=== PATIENT | female | born 1955 | race Caucasian/White ===

== ENCOUNTER → 2019-11-02 09:50 | Outpatient (CLI) | payer BC, SELFPAY ==
--- NOTE | 2019-11-02 09:54 | MM_ITS ---
PROCEDURE: MM DIG SCREENING MAMM BI W/CAD DIGITAL BREAST TOMOSYNTHESIS INCLUDED Patient Age:64Y CLINICAL INDICATION: Routine screening mammogram. No new complaints but no female hormones. . Patient with questionable previous cyst aspiration or biopsy right breast-nonspecified. Family history: Negative COMPARISON: No exams were available for comparison Patient's previous study was well over 10 years ago at [facility] facility and have since been purged as per hospital protocol TECHNIQUE: Standard CC and MLO images were obtained. R2 CAD reviewed. Bilateral digital breast tomosynthesis included. Additional CC views both breast included the FINDINGS: Moderate density breast but no suspicious or dominant mass. But no suspicious calcifications mild asymmetry appears satisfactory. Tomosynthesis view show no additional areas of concern either. IMPRESSION: No areas of significant concern. Mild fibroglandular asymmetry with no focal abnormality evident No prior studies available for comparison . Bilateral follow-up 1 year recommended BI-RAD Category: 2 Benign Finding(s) FOLLOW-UP: 1YR 1 Year Follow-up the the the the the the the (A letter has been sent to the patient regarding results of the study.) Dictated by: Salvatore Pelletier MD 11/07/2019 12:38 Electronically signed by Salvatore Pelletier MD in [place] 11/07/2019 12:38
--- NOTE | 2019-11-02 09:54 | XR_ITS ---
PROCEDURE: XR DEXA AXIAL SKELETON CLINICAL HISTORY: POST-MENOPAUSAL COMPARISON: No exams were available for comparison FINDINGS: The right hip BMD is 1.021 with a t-score of 0.6. The left hip BMD is 0.954 with a t-score of 0.1. The lumbar spine BMD is 1.187 with a t-score of 1.3. IMPRESSION: Normal bone density with low fracture risk. Suggest follow-up exam in 2 years Dictated by: Mingo Cosby MD 11/02/2019 21:12 Electronically signed by Mingo Cosby MD in [place] 11/03/2019 14:14
== END ==
PROVIDERS: PCP Internal Medicine Adolescent Medicine; Visit Provider Internal Medicine Adolescent Medicine
DX: Z78.0 Asymptomatic menopausal state (principal); Z12.31 Encounter for screening mammogram for malignant neoplasm of breast
CPT/HCPCS: 77063; 77067; 77080

== ENCOUNTER → 2021-06-25 10:35 | Outpatient (CLI) | payer BC, SELFPAY ==
--- NOTE | 2021-06-25 10:39 | MM_ITS ---
PROCEDURE INFORMATION: Exam: MG Bilateral Screening 3D Mammography Exam date and time: 06/25/2021 10:39 AM Age: 66 years old Clinical indication: Screening mammogram TECHNIQUE: Imaging protocol: Bilateral Screening tomosynthesis and 2D mammography including computer-aided detection (CAD) when performed. COMPARISON: MG MM DIG SCREENING MAMM BI W/CAD 11/02/2019 10:11 AM FINDINGS: MAMMOGRAPHY: Breast composition: There are scattered areas of fibroglandular density. Mass: None. Architectural distortion: No new or suspicious architectural distortion. Calcifications: No new or suspicious calcifications are present Asymmetric density: No new or suspicious asymmetric density is present Skin thickening: None. Axillary adenopathy: None. Other findings: Stable postoperative findings on the right. IMPRESSION: No mammographic evidence of malignancy. Recommend annual screening mammography unless otherwise clinically indicated. ASSESSMENT: BI-RADS category 2: Benign
== END ==
PROVIDERS: PCP Internal Medicine Adolescent Medicine; Visit Provider Internal Medicine Adolescent Medicine
DX: Z12.31 Encounter for screening mammogram for malignant neoplasm of breast (principal)
CPT/HCPCS: 77063; 77067

== ENCOUNTER → 2021-11-05 09:33 | Outpatient (CLI) | payer BC, SELFPAY | PROVIDERS: PCP Internal Medicine Adolescent Medicine; Visit Provider Internal Medicine | DX: U07.1 COVID-19 (principal) | CPT/HCPCS: C9803; U0003; U0005 ==

== ENCOUNTER → 2022-07-17 12:59 | Outpatient (CLI) | payer BC, SELFPAY ==
--- NOTE | 2022-07-17 13:05 | MM_ITS ---
PROCEDURE INFORMATION: Exam: MG Bilateral Screening 3D Mammography Exam date and time: 07/17/2022 1:03 PM Age: 67 years old Clinical indication: Screening examination TECHNIQUE: Imaging protocol: Bilateral Screening tomosynthesis and 2D mammography including computer-aided detection (CAD) when performed. COMPARISON: 1. MG MM DIG SCREENING MAMM BI W/CAD 06/25/2021 10:48 AM 2. MG MM DIG SCREENING MAMM BI W/CAD 11/02/2019 10:11 AM FINDINGS: MAMMOGRAPHY: Breast composition: There are scattered areas of fibroglandular density. Mass: None. Architectural distortion: None. Calcifications: No suspicious calcifications. Asymmetric density: None. Skin thickening: None. Axillary adenopathy: None. IMPRESSION: No mammographic evidence of malignancy. Annual screening is recommended unless otherwise clinically indicated. ASSESSMENT: BI-RADS Category 1: Negative
== END ==
PROVIDERS: PCP Internal Medicine Adolescent Medicine; Visit Provider Internal Medicine Adolescent Medicine
DX: Z12.31 Encounter for screening mammogram for malignant neoplasm of breast (principal)
CPT/HCPCS: 77063; 77067

== ENCOUNTER 2022-08-05 09:28 | Inpatient (IN) | payer BC, MEDICARE, SELFPAY ==
[2022-08-05] VITALS (21 sets, daily range): BP systolic 96–179; BP diastolic 50–107; PULSE 45–85; RESP 15–25; TEMP 36.4–37.3; O2SAT 91–100; BMI 27.8; BMI 27.1
--- NOTE | 2022-08-05 | IR_ITS ---
APPROVED REPORT PROCEDURES Catheter placement in the right pulmonary artery Right pulmonary artery selective angiogram Mechanical thrombectomy to the right upper pulmonary artery segment Mechanical thrombectomy to the right lower pulmonary artery segment Catheter placement in the left pulmonary artery Left pulmonary artery selective angiogram Mechanical thrombectomy to the left lower pulmonary segment INDICATION Submassive pulmonary embolism Informed consent was obtained prior to the procedure. COMPLICATIONS None Estimated Blood Loss: Less than 10 ml TECHNIQUE 1% lidocaine used anesthetize the right groin the right femoral vein was accessed via the Salinger technique and a 12 Danish sheath was placed in the right femoral vein. A JR4 guide catheter was used to intubate the right ventricular outflow track and a wire was then used to pass into the pulmonary artery. A penumbra lightening guide catheter was then advanced along with a 12 Danish sheath being placed into the right pulmonary artery where selective angiography was performed. Therapeutic heparin was administered giving a therapeutic ACT. The penumbra lightening catheter was advanced to the right upper segment and then large amount of thrombus was aspirated. Repeat angiography demonstrated wide patency. The catheter was advanced into the lower right segment and this procedure was repeated. Repeat angiography demonstrated excellent patency. The procedure was then repeated on the left side of the lung where large amount of thrombus was removed from the left lung. After achieving excellent clinical results and aspiration of a large amount of thrombus the penumbra catheter became clogged and could no longer aspirate any thrombus. The catheter was removed and flushed a large thrombus occluded the catheter. Angiography was then performed via the sheath which demonstrated significant debulking of the left lower segment. At this point the apparatus was removed the sheath was removed hemostasis was achieved using Z stitch patient was transferred to the postop holding area stable condition ANGIOGRAPHIC RESULTS Right upper segment has a massive thrombus causing severe occlusion Right lower segment has massive thrombus causing severe occlusion Right lower segment has a massive thrombus causing severe occlusion IMPRESSION Successful mechanical thrombectomy of the right upper and lower segments and subsegments Successful mechanical thrombectomy of the left lower segment and subsegment PLAN 1. Xarelto 15 mg p.o. twice daily for 3 weeks followed by Xarelto 20 mg daily thereafter 2. Supportive care Electronically signed by : Solitario Rodriguez MD 08/05/2022 18:10:27
--- NOTE | 2022-08-05 09:35 | CT_ITS ---
FINAL REPORT TECHNIQUE: Thin section axial CT images were obtained from the lung apices to the upper abdomen. IV contrast was administered. MIP 3-D reformats were obtained. This study was performed with techniques to keep radiation doses as low as reasonably achievable (ALARA). Individualized dose reduction techniques using automated exposure control or adjustment of mA and/or kV according to the patient's size were employed. CLINICAL HISTORY: Dimer elevated, SOA FINDINGS: The heart size is normal. There is no adenopathy. There are large bilateral pulmonary emboli. Clot burden is large. The RV LV ratio is 1.7 consistent with right heart strain. There is no aortic dissection. There is no pericardial effusion. There is no suspicious infiltrate or nodule. No pleural effusion. Limited images of the upper abdomen demonstrate multiple presumed gallstones. IMPRESSION: Large bilateral pulmonary emboli with evidence of right heart strain. Dr. Higgins was notified of these findings at 11:18 a.m. August 05, 2022. Reviewed, Interpreted and Dictated by Jose Zapata III, MD Transcribed by Randell Braxton Authenticated and [facility]
--- NOTE | 2022-08-05 09:35 | XR_ITS ---
FINAL REPORT CLINICAL HISTORY: soa FINDINGS: SINGLE-VIEW CHEST There is cardiomegaly. The mediastinum is normal. The lungs are clear. There is no pneumothorax. IMPRESSION: No acute cardiopulmonary process. Reviewed, Interpreted and Dictated by Jose Zapata III, MD Transcribed by Silvia Jeffers Authenticated and . [facility]
[2022-08-05 09:43] LABS: Basophils % 0.3 % (0.1-2.0); Eosinophils # 0.1 K/mm3 (0.0-0.4); Eosinophils % 0.9 % (0.1-12.0); Hematocrit 43.7 % (37.0-47.0); Hemoglobin 13.9 g/dL (12.2-16.2); Lymphocytes # 2.1 K/mm3 (0.7-4.5); Lymphocytes % 17.8 % (10-50); Mean Corpuscular HGB Conc 31.8 g/dL (31.8-35.4); Mean Corpuscular Volume 94.3 fl (81-99); Mean Platelet Volume 9.7 fl (7.4-10.4); Monocytes # 0.6 K/mm3 (0.1-1.0); Monocytes % 4.6 % (1.7-9.3); Neutrophils # 9.1 K/mm3 (1.8-7.8); Neutrophils % 76.5 % (37.0-80.0); Platelet Count 297 K/mm3 (142-424); Red Blood Count 4.63 M/mm3 (4.20-5.40); Red Cell Distribution Width 13.9 % (11.5-17.5); White Blood Count 11.9 K/mm3 (4.8-10.8)
--- NOTE | 2022-08-05 09:43 | ECG_ITS ---
APPROVED REPORT Exam: Resting ECG HR:71 bpm ECG Measurements Heart Rate 71 AXES MO 183 P 65 QRSd 111 QRS 27 QT 413 T -73 QTc 436 Conclusion SINUS RHYTHM INCOMPLETE RIGHT BUNDLE BRANCH BLOCK [90+ ms QRS DURATION, TERMINAL R IN V1/V2, 40+ ms S IN I/aVL/V4/V5/V6] ST DEVIATION AND MODERATE T-WAVE ABNORMALITY, CONSIDER ANTEROLATERAL ISCHEMIA [-0.1+ mV T-WAVE IN V3-V6] ST DEVIATION AND MODERATE T-WAVE ABNORMALITY, CONSIDER INFERIOR ISCHEMIA [-0.1+ mV T-WAVE IN II/aVF] ABNORMAL ECG UNCONFIRMED REPORT Electronically signed by : Santiago Pollard MD 08/05/2022 20:40:52
[2022-08-05 09:50] LABS: VBG Base Excess -7.8 mmol/L (-2.4-2.3); VBG HCO3 20.3 mmol/L (23-30); VBG Oxygen Saturation 95.4 % (50-70); VBG PO2 95.6 mmol/L (28-40); VBG Total CO2 21.9 mmol/L (23-27)
[2022-08-05 09:50] LABS: Chloride 101 mmol/L (98-107); Sodium 139 mmol/L (136-145)
[2022-08-05 09:51] LABS: Potassium 3.1 mmoL/L (3.5-5.1)
[2022-08-05 09:53] LABS: Alanine Aminotransferase 75 U/L (12-78); Alkaline Phosphatase 104 U/L (38-126); Aspartate Amino Transferase 68 U/L (14-36); Bilirubin,Total 0.9 mg/dl (0.2-1.3); Blood Urea Nitrogen 30 mg/dl (7-17); Creatinine Clearance Estimated 39 mL/min (50-200); Estimated Glomerular Filt Rate 25 ml/min (>60); GFR (African American) 30 ML/MIN (>60)
[2022-08-05 09:54] LABS: VBG PCO2 52.9 mmol/L (35-51)
[2022-08-05 09:54] LABS: Albumin Level 4.1 g/dl (3.5-5.0); Albumin/Globulin Ratio 1.3 (1.1-1.8); Anion Gap 18.1 mEq/L (5-15); Calcium 8.5 mg/dl (8.4-10.2); Carbon Dioxide 23 mmol/L (22.0-30.0); Globulin 3.1 g/dL (1.3-3.2); Glucose 271 mg/dl (74-100); Total Protein,Serum 7.2 g/dl (6.3-8.2)
[2022-08-05 10:03] LABS: NT Pro Brain Natriuretic Pep. 10700 pg/mL (0-125)
[2022-08-05 10:06] LABS: Troponin I 0.13 ng/ml (0.00-0.034)
--- NOTE | 2022-08-05 10:08 | HMH.EDGENADL ---
Discharge Plan Disposition Patient Disposition: Admitted As Inpatient Chief Complaint: Shortness of Breath/Dyspnea Clinical Impressions Clinical Impression: Pulmonary embolism Discharge ED Provider: Hima Higgins General Adult HPI General Chief complaint: Shortness of Breath/Dyspnea Stated complaint: Shortness of Breath Time Seen by Provider: 08/05/22 09:30 Mode of Arrival: EMS Source of Information: Patient and EMS Limitations: No Limitations Description of Symptoms (Recalled from ER Triage Doc. by RN): pt brought in via ems for shortness of air. symptoms ongoing since thursday. pt reports that she did recently take a trip to [place] and got home this past thursday. History of Present Illness HPI narrative: 67-year-old female with history of hypertension presents with shortness of air. She says that she is in normal state of health. However last week she drove 2600 miles to [facility] and returned. She has no history of blood clots or leg swelling. No current chest pain. She has difficulty breathing with walking. No fever no chills no cough. No abdominal pain nausea vomiting diarrhea. Related Data Home Medications Medication Instructions Recorded Confirmed amlodipine 10 mg-benazepril 20 mg 1 cap PO DAILY bp 07/13/17 08/05/22 capsule atorvastatin 80 mg tablet 80 mg PO HS High cholesterol 07/16/21 08/05/22 bisoprolol 10 1 tab PO DAILY bp 07/16/21 08/05/22 mg-hydrochlorothiazide 6.25 mg tablet Allergies Allergy/AdvReac Type Severity Reaction Status Date / Time No Known Allergies Allergy Verified 08/05/22 09:42 [facility] Disclaimer: The information contained in this section may have been updated after the patient was seen, as this information can be updated by other users. Medical History Hypertension Social History Smoking Status: Never smoker alcohol intake: never substance use type: denies use current occupational status: employed Travel in the last 8 weeks: None caffeine: Yes ROS Obtained: Yes All systems reviewed & no additional complaints except as documented Constitutional Constitutional: Denies fatigue and Denies fever(s) Eyes Eyes: Denies dry eyes ENT Ears, Nose, Mouth, and Throat: Denies hoarseness Cardiovascular Cardiovascular: Reports dyspnea Respiratory Respiratory: Reports dyspnea and Denies wheezing Gastrointestinal Gastrointestingal: Denies constipation Genitourinary Female Genitourinary: Denies hematuria Musculoskeletal Musculoskeletal: Denies joint stiffness Integumentary/Breasts Skin/Breast: Denies redness Neurologic Neurologic: Denies confusion Endocrine Endocrine: Denies fatigue Allergic/Immunologic Allergic/Immunologic: Denies wheezing Physical Exam General General appearance: alert and in no apparent distress Eye Eye exam: Present PERRL and EOMI ENT ENT exam: Present normal exam and normal oropharynx Neck Neck exam: Present normal inspection Chest Chest inspection: Present symmetric chest wall rise Respiratory Respiratory exam: Present normal lung sounds bilaterally; Absent respiratory distress Cardiovascular Cardiovascular exam: Present regular rate and normal rhythm Abdominal Exam Abdominal exam: Present soft; Absent distention, tenderness, guarding, rebound, Grider's sign or tenderness at McBurney's Point Back Exam Back exam: Present normal inspection Neurological Exam Neurological exam: Present alert and oriented X3 Psychiatric Psychiatric exam: Present normal affect and normal mood Skin Skin exam: Present warm, dry and intact Lymphatic Lymphatic Findings: no adenopathy Medical Decision Making Medical Records Medical records reviewed: Yes I reviewed the patient's medical records. Denys Inquiry Pt receiving controlled substance: No Denys was queried for this patient: No Vital Signs: 08/05/22 09:40 04
[2022-08-05 10:19] LABS: VBG PH 7.31 mmol/L (7.31-7.41)
[2022-08-05 10:20] LABS: VBG Base Excess -4.7 mmol/L (-2.4-2.3); VBG HCO3 21.6 mmol/L (23-30); VBG Oxygen Saturation 47.7 % (50-70); VBG PO2 29.1 mmol/L (28-40); VBG Total CO2 22.9 mmol/L (23-27)
[2022-08-05 10:42] LABS: Chloride 104 mmol/L (98-107); Potassium 3.9 mmoL/L (3.5-5.1)
[2022-08-05 10:44] LABS: Sodium 137 mmol/L (136-145)
[2022-08-05 10:45] LABS: Anion Gap 12.9 mEq/L (5-15); Blood Urea Nitrogen 33 mg/dl (7-17); Calcium 8.2 mg/dl (8.4-10.2); Carbon Dioxide 24 mmol/L (22.0-30.0); Creatinine Clearance Estimated 45 mL/min (50-200); Estimated Glomerular Filt Rate 30 ml/min (>60); GFR (African American) 36 ML/MIN (>60); Glucose 200 mg/dl (74-100)
--- NOTE | 2022-08-05 11:20 | PC.NURSE ---
rounded on pt at this time. family requesting to speak to md. gordon notified.
--- NOTE | 2022-08-05 11:36 | PC.NURSE ---
called radiology to [facility]
--- NOTE | 2022-08-05 11:50 | PC.NURSE ---
Called for consult and possible transfer of patient.
--- NOTE | 2022-08-05 11:50 | PC.NURSE ---
Dr Higgins talking to [facility] Dr Devine and Dr Segura about patient.
--- NOTE | 2022-08-05 11:53 | PC.NURSE ---
speaking to [facility]
--- NOTE | 2022-08-05 11:57 | PC.NURSE ---
[facility] reports they wouldnt intervene with pt unless pt condition worsened
--- NOTE | 2022-08-05 11:57 | PC.NURSE ---
speaking with hospitalist
[2022-08-05 12:01] LABS: PTT Heparin (inpatient only) 23.2 Seconds (23.6-34.0)
--- NOTE | 2022-08-05 12:51 | HMH.PHAINT1 ---
Pharmacy Intervention Comments: Reconciled patient's home medications using pharmacy fill history.
--- NOTE | 2022-08-05 12:52 | P.CONPHA_ITS ---
[facility] Pharmacy Heparin Dosing Demographic Data Admission date:: 08/05/22 Date: 08/05/22 Time: 12:52 Allergies Allergy/AdvReac Type Severity Reaction Status Date / Time No Known Allergies Allergy Verified 08/05/22 09:42 Height: 1.8 m Weight: 90.7 kg Indication Medication therapy:: Heparin Current Indications:: PE Current Active Problems (Updated 08/06/22 @ 11:21 by Margy Ashley APRN) Renal insufficiency (Acute) Elevated brain natriuretic peptide (BNP) level (Acute) Elevated troponin (Acute) Dyspnea (Acute) Pulmonary embolism (Acute) Hyperlipidemia (Acute) Hypertension (Chronic) CVA?: No Bleeding problem?: No Kidney disease?: No NM?: No Desired PTT range:: 50-75 seconds Labs Anticoagulation Lab Results:: 08/05/22 09:25 Hgb 13.9 Hct 43.7 Plt Count 297 Monitoring Dose Monitor 1: Date: 08/05/22 Time: 10:06 PTT Result:: 23.2 (BASELINE) Infusion Rate:: 1,600 UNITS/HR Comment:: 7,000 UNIT BOLUS Dose Monitor 2: Date: 08/05/22 Time: 13:00 PTT Result:: 152.3 Infusion Rate:: DECREASE RATE TO 1,450 UNITS/HR Dose Monitor 3: Date: 08/05/22 Time: 16:35 Comment:: CHANGED TO XARELTO Core Measures Is INR > or = 2 at discharge?: No Most Recent Labs:: Laboratory Results - last 24 hr 08/05/22 09:25: WBC 11.9 H, RBC 4.63, Hgb 13.9, Hct 43.7, MCV 94.3, MCH 30.0, MCHC 31.8, RDW 13.9, Plt Count 297, MPV 9.7, Neut % (Auto) 76.5, Lymph % (Auto) 17.8, Grant % (Auto) 4.6, Eos % (Auto) 0.9, Baso % (Auto) 0.3, Neut # (Auto) 9.1 H, Lymph # (Auto) 2.1, Grant # (Auto) 0.6, Eos # (Auto) 0.1, Baso # (Auto) 0.0 08/05/22 09:25: Sodium 139, Potassium 3.1 L, Chloride 101, Carbon Dioxide 23, Anion Gap 18.1 H, BUN 30 H, Creatinine 2.00 H, Estimated Creat Clear 39, Estimated GFR 25 L, Est GFR ( Amer) 30 L, Glucose 271 H, Calcium 8.5, Total Bilirubin 0.9, AST 68 H, ALT 75, Alkaline Phosphatase 104, Troponin I 0.13 H, NT-Pro-B Natriuret Pep 08027 H, Total Protein 7.2, Albumin 4.1, Globulin 3.1, Albumin/Globulin Ratio 1.3 08/05/22 09:48: VBG pH 7.20 L, VBG pCO2 52.9 H, VBG pO2 95.6 H, VBG HCO3 20.3 L, VBG Total CO2 21.9 L, VBG O2 Saturation 95.4 H, VBG Base Excess -7.8 L 08/05/22 10:00: VBG pH 7.31, VBG pCO2 44.0, VBG pO2 29.1, VBG HCO3 21.6 L, VBG Total CO2 22.9 L, VBG O2 Saturation 47.7 L, VBG Base Excess -4.7 L 08/05/22 10:06: Sodium 137, Potassium 3.9 D, Chloride 104, Carbon Dioxide 24, Anion Gap 12.9, BUN 33 H, Creatinine 1.70 H, Estimated Creat Clear 45, Estimated GFR 30 L, Est GFR ( Amer) 36 L, Glucose 200 H D, Calcium 8.2 L 08/05/22 10:06: APTT 23.2 L Were Heparin and Warfarin started on the same day?: No If not, why?: XARELTO STARTED
--- NOTE | 2022-08-05 13:03 | PC.NURSE ---
Called , Dr Higgins asked to remove patient from list, since being admitted here.
--- NOTE | 2022-08-05 13:06 | PC.NURSE ---
called report to trudy linder on med/surg
--- NOTE | 2022-08-05 13:50 | PC.NURSE ---
Dr. Rodriguez at bedside to discuss surgical intervention.
[2022-08-05 13:53] LABS: Troponin I 0.11 ng/ml (0.00-0.034)
--- NOTE | 2022-08-05 13:59 | EXP.CARD.CON ---
History of Present Illness History of Present Illness Consult date: 08/05/22 Requesting physician: Hima Higgins Consult reason: shortness of breath Chief complaint: SOA History of present illness: This is a 67-year-old white female who presented to the emergency department complaints of chest pain. She has past medical history of hypertension and hyperlipidemia. The patient states that she started being short of breath on Thursday. She states that they have worsened since that time and have gotten severe. The patient states that the shortness of breath is worse with exertion and does improve with rest but does not completely resolve. She denies any chest pain or pressure. She states that she has been having significant difficulty breathing while she is walking. She denies any lower extremity edema. She denies any fever, chills, nausea, vomiting, diarrhea, PND or orthopnea. The patient reports that she did take a trip to [place] where she drove the entire way and then just drove home this past Thursday. She states that during the drive home she did notice that she had a charley horse sensation in her left lower extremity which was most likely a DVT. She states that the charley horse sensation has resolved but her leg still kind of feels funny like something has been going on in her leg. CTA of the chest in the emergency department does show large bilateral pulmonary emboli with evidence of right heart strain. The patient was subsequently admitted to the hospital to undergo possible embolectomy. [facility] Disclaimer: The information contained in this section may have been updated after the patient was seen, as this information can be updated by other users. Medical History (Updated 08/05/22 @ 14:11 by Margy Ashley APRN) Dyspnea Elevated brain natriuretic peptide (BNP) level Elevated troponin Hyperlipidemia Hypertension Pulmonary embolism Renal insufficiency Social History Smoking Status: Never smoker alcohol intake: never substance use type: denies use current occupational status: employed Travel in the last 8 weeks: None caffeine: Yes Review of Systems Review of Systems Review of systems:: pertinent systems reviewed and negative unless documented below Constitutional Constitutional: Reports system reviewed and no additional complaints, except as documented Eyes Eyes: Reports system reviewed and no additional complaints, except as documented ENT Ears, Nose, Mouth, and Throat: Reports system reviewed and no additional complaints, except as documented *Cardiovascular Cardiovascular: Reports system reviewed and no additional complaints, except as documented, Denies chest pain, Reports dyspnea and Reports dyspnea on exertion *Respiratory Respiratory: Reports system reviewed and no additional complaints, except as documented, Reports dyspnea and Reports dyspnea on exertion *Gastrointestinal Gastrointestinal: Reports system reviewed and no additional complaints, except as documented *Genitourinary Genitourinary: Reports system reviewed and no additional complaints, except as documented *Musculoskeletal Musculoskeletal: Reports system reviewed and no additional complaints, except as documented and Reports other (leg cramping/charley horse sensation in LLE) Integumentary/Breasts Skin/Breast: Reports system reviewed and no additional complaints, except as documented *Neurologic Neurologic: Reports system reviewed and no additional complaints, except as documented and Denies confusion Psychiatric Psychiatric: Reports system reviewed and no additional complaints, except as documented and Denies confusion Endocrine Endocrine: Reports system reviewed and no additional complaints, except as documented Hematologic/Lymphatic Hematologic/Lymphatic: Reports system reviewed and no additional complaints, except as documented Allergic/Immunologic Allergic/Immunologic: Reports system reviewed an
[2022-08-05 14:02] LABS: PTT Heparin (inpatient only) 152.3 Seconds (23.6-34.0)
--- NOTE | 2022-08-05 14:08 | PC.NURSE ---
Patient being prepped for surgery. Patient to go to the labor relations analyst for cath and embolectomy, today. Earrings (smal hoops place in a specimen cup), Purse, glasses and phone given to the patients daughter. Clothing in cabinet. Patient to have repeat PTT drawn post procedure per Haris in Pharmacy.
--- NOTE | 2022-08-05 14:31 | PC.NURSE ---
patient gone to school laboratory technician. Heparin placed in standby.
[2022-08-05 15:20] LABS: Coronavirus 19, PCR Not Detected (NotDetected); Influenza A, PCR Not Detected (NotDetected); Influenza B, PCR Not Detected (NotDetected)
--- NOTE | 2022-08-05 18:00 | PC.NURSE ---
Per analytical laboratory technician instruction, Zstitch was removed with a suture removed kit at 1800, scant red drainage noted to the insertion site, manual pressure help for 15 minutes, dressing changed using a folded 4x4, secured with tegaderm, sand bag laid on top of right groin.
[2022-08-05 18:08] LABS: Troponin I 0.15 ng/ml (0.00-0.034)
[2022-08-05 19:01] LABS: PTT Heparin (inpatient only) > 200.0 Seconds (23.6-34.0)
--- NOTE | 2022-08-05 21:18 | EXP.HP ---
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 She finished her morning route and came to the hospital where she was found to be hypoxic and tachycardic. On history review she had recently completed a long car trip to [place] where she had been in a car for the better part of [address] scan of chest was done which revealed evidence of bilateral pulmonary emboli. Given her new oxygen requirement and some RV strain noted on EKG [facility] cardiology was consulted, Dr. Sparks was spoken to by the ER doctor and on his review of the case he did not think it warranted transfer for intervention. The patient was placed on heparin, but inadvertently initially admitted to hospitalist service who consulted cardiology. Cardiology service at [facility] felt the patient would warrant admission and interventional clot extraction procedure and she was taken for that procedure and then transferred up to the floor. [facility] Disclaimer: The information contained in this section may have been updated after the patient was seen, as this information can be updated by other users. Medical History (Updated 08/05/22 @ 14:11 by Margy Ashley APRN) Dyspnea Elevated brain natriuretic peptide (BNP) level Elevated troponin Hyperlipidemia Hypertension Pulmonary embolism Renal insufficiency Social History Smoking Status: Never smoker alcohol intake: never substance use type: denies use current occupational status: employed Travel in the last 8 weeks: None caffeine: Yes Review of Systems Review of Systems Review of systems:: pertinent systems reviewed and negative unless documented below *Neurologic Neurologic: Reports system reviewed and no additional complaints, except as documented and Denies confusion Psychiatric Psychiatric: Denies confusion Meds Home Medications and Allergies Home Medications Medication Instructions Recorded Confirmed Type amlodipine 10 mg-benazepril 20 mg 1 cap PO DAILY High blood pressure 07/13/17 08/05/22 History capsule atorvastatin 80 mg tablet 80 mg PO HS High cholesterol 07/16/21 08/05/22 History bisoprolol 10 1 tab PO DAILY High blood pressure 07/16/21 08/05/22 History mg-hydrochlorothiazide 6.25 mg tablet New Prescriptions to Start Prescriptions: Allergies Allergy/AdvReac Type Severity Reaction Status Date / Time No Known Allergies Allergy Verified 08/05/22 09:42 Exam Data for Last 24 hours Vital signs and Labs for Last 24 Hours: Temp Pulse Resp BP Pulse Ox 97.9 F 56 L 18 124/56 L 96 08/05/22 20:00 08/05/22 20:00 08/05/22 20:00 08/05/22 20:00 08/05/22 20:00 Laboratory Results - last 24 hr 08/05/22 09:25: WBC 11.9 H, RBC 4.63, Hgb 13.9, Hct 43.7, MCV 94.3, MCH 30.0, MCHC 31.8, RDW 13.9, Plt Count 297, MPV 9.7, Neut % (Auto) 76.5, Lymph % (Auto) 17.8, [place] % (Auto) 4.6, Eos % (Auto) 0.9, Baso % (Auto) 0.3, Neut # (Auto) 9.1 H, Lymph # (Auto) 2.1, Ross # (Auto) 0.6, Eos # (Auto) 0.1, Baso # (Auto) 0.0 08/05/22 09:25: Sodium 139, Potassium 3.1 L, Chloride 101, Carbon Dioxide 23, Anion Gap 18.1 H, BUN 30 H, Creatinine 2.00 H, Estimated Creat Clear 39, Estimated GFR 25 L, Est GFR ( Amer) 30 L, Glucose 271 H, Calcium 8.5, Total Bilirubin 0.9, AST 68 H, ALT 75, Alkaline Phosphatase 104, Troponin I 0.13 H, NT-Pro-B Natriuret Pep 11647 H, Total Protein 7.2, Albumin 4.1, Globulin 3.1, Albumin/Globulin Ratio 1.3 08/05/22 09:48: VBG pH 7.20 L, VBG pCO2 52.9 H, VBG pO2 95.6 H, VBG HCO3 20.3 L, VBG Total C
[2022-08-06] VITALS: BP 131/56; PULSE 55; PULSE 60; RESP 18; TEMP 36.9; O2SAT 97
--- NOTE | 2022-08-06 05:55 | PC.NURSE ---
Pt has had no complaints this shift. Pt ambulates to BR with standby assistance and tolerates well. O2 weaned to 1L, pt tolerating well. Pt denies CP or SOA. Dressing to right femoral cath site is CDI. No drainage, bleeding, or hematoma noted. Bilat pedal pulses equal and BLE warm and pink. NS infusing @100 ml/hr per JUN. Call light within reach.
[2022-08-06 06:00] VITALS: PULSE 50
--- NOTE | 2022-08-06 06:30 | CA_ITS ---
FINAL REPORT TECHNIQUE: Graded compression and a standard color Doppler and grayscale ultrasound images of the bilateral lower extremity deep venous system were obtained from the groin to the knee. CLINICAL HISTORY: Bilateral lower extremity edema, Left popliteal leg pain, PE COMPARISON: None FINDINGS: The right lower extremity deep venous system is normal. There is normal compressibility. There is no evidence of thrombus. In the left lower extremity there is positive deep venous thrombosis in the posterior tibial vein. IMPRESSION: Positive for DVT in the left posterior tibial vein. No evidence of DVT in the right lower extremity. Reviewed, Interpreted and Dictated by Jose Zapata III, MD Transcribed by Aleida Jj Authenticated and [facility]
[2022-08-06 06:41] LABS: Basophils % 0.3 % (0.1-2.0); Chloride 108 mmol/L (98-107); Eosinophils # 0.1 K/mm3 (0.0-0.4); Lymphocytes # 1.7 K/mm3 (0.7-4.5); Monocytes # 0.5 K/mm3 (0.1-1.0); Monocytes % 6.7 % (1.7-9.3); Sodium 140 mmol/L (136-145)
[2022-08-06 06:42] LABS: Potassium 3.6 mmoL/L (3.5-5.1)
[2022-08-06 06:44] LABS: Alanine Aminotransferase 46 U/L (12-78); Alkaline Phosphatase 77 U/L (38-126); Anion Gap 9.6 mEq/L (5-15); Aspartate Amino Transferase 30 U/L (14-36); Bilirubin,Indirect 0.7 mg/dL (0.0-0.9); Bilirubin,Total 0.7 mg/dl (0.2-1.3); Bilirubin,Unconjugated 0.8 mg/dL (0.0-1.1); Blood Urea Nitrogen 19 mg/dl (7-17); Calcium 7.7 mg/dl (8.4-10.2); Carbon Dioxide 26 mmol/L (22.0-30.0); Chol/HDL Ratio 5.9 (1-3.5); Cholesterol 124 mg/dl (140-200); Creatinine Clearance Estimated 75 mL/min (50-200); Estimated Glomerular Filt Rate 55 ml/min (>60); GFR (African American) 67 ML/MIN (>60); Glucose 111 mg/dl (74-100); HDL Cholesterol 21 mg/dl (40-60); Total Protein,Serum 5.4 g/dl (6.3-8.2); Triglycerides 119 mg/dl (30-150); VLDL Cholesterol 24 mg/dL (0-40)
[2022-08-06 06:56] LABS: Direct LDL Cholesterol 86.23 mg/dL (100-129)
[2022-08-06 06:58] LABS: Hematocrit 34.1 % (37.0-47.0); Lymphocytes % 22.5 % (10-50); Mean Corpuscular HGB Conc 32.6 g/dL (31.8-35.4); Mean Corpuscular Hemoglobin 30.1 pg (27.0-31.2); Mean Corpuscular Volume 92.1 fl (81-99); Mean Platelet Volume 9.4 fl (7.4-10.4); Neutrophils # 5.1 K/mm3 (1.8-7.8); Neutrophils % 69.4 % (37.0-80.0); Platelet Count 223 K/mm3 (142-424); Red Blood Count 3.71 M/mm3 (4.20-5.40); White Blood Count 7.3 K/mm3 (4.8-10.8)
[2022-08-06 07:08] LABS: Hemoglobin 11.1 g/dL (12.2-16.2)
[2022-08-06 07:31] VITALS: RESP 15; O2SAT 96
[2022-08-06 08:00] VITALS: BP 140/71; PULSE 57; PULSE 70; RESP 16; TEMP 36.8; O2SAT 98
--- NOTE | 2022-08-06 08:47 | EXP.DC.SUM ---
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 She finished her morning route and came to the hospital where she was found to be hypoxic and tachycardic. On history review she had recently completed a long car trip to [place] where she had been in a car for the better part of [address] scan of chest was done which revealed evidence of bilateral pulmonary emboli. Given her new oxygen requirement and some RV strain noted on EKG [facility] cardiology was consulted, Dr. Sparks was spoken to by the ER doctor and on his review of the case he did not think it warranted transfer for intervention. The patient was placed on heparin, but inadvertently initially admitted to hospitalist service who consulted cardiology. Cardiology service at [facility] felt the patient would warrant admission and interventional clot extraction procedure and she was taken for that procedure and then transferred up to the floor. Hospital Course Hospital Course Hospital Course: Patient was admitted, was subjected to pulmonary embolectomy as noted per cardiology notes. Patient tolerated procedure well. Did require oxygen through the night, this morning we removed it and decision about oxygen is pending at the time of discharge, patient may need to go home on 1 L, although her exam and feelings of dyspnea up to 15 minutes after O2 was removed were normal. Patient tolerated blood thinners well through the night. Patient was noted to have an LEAH on admission, fluids were given to the night and creatinine now is normal. Vital signs been stable. EKG is essentially unchanged. Plan to be to discharge patient home, I will prescribe Eliquis for anticoagulation, follow her up in the office in 5 days. Exam Data for Last 24 hours Vital signs and Labs for Last 24 Hours: Temp Pulse Resp BP Pulse Ox 98.2 F 57 L 16 140/71 98 08/06/22 08:00 08/06/22 08:00 08/06/22 08:00 08/06/22 08:00 08/06/22 08:00 Laboratory Results - last 24 hr 08/05/22 09:25: WBC 11.9 H, RBC 4.63, Hgb 13.9, Hct 43.7, MCV 94.3, MCH 30.0, MCHC 31.8, RDW 13.9, Plt Count 297, MPV 9.7, Neut % (Auto) 76.5, Lymph % (Auto) 17.8, [place] % (Auto) 4.6, Eos % (Auto) 0.9, Baso % (Auto) 0.3, Neut # (Auto) 9.1 H, Lymph # (Auto) 2.1, [place] # (Auto) 0.6, Eos # (Auto) 0.1, Baso # (Auto) 0.0 08/05/22 09:25: Sodium 139, Potassium 3.1 L, Chloride 101, Carbon Dioxide 23, Anion Gap 18.1 H, BUN 30 H, Creatinine 2.00 H, Estimated Creat Clear 39, Estimated GFR 25 L, Est GFR ( Amer) 30 L, Glucose 271 H, Calcium 8.5, Total Bilirubin 0.9, AST 68 H, ALT 75, Alkaline Phosphatase 104, Troponin I 0.13 H, NT-Pro-B Natriuret Pep 52733 H, Total Protein 7.2, Albumin 4.1, Globulin 3.1, Albumin/Globulin Ratio 1.3 08/05/22 09:48: VBG pH 7.20 L, VBG pCO2 52.9 H, VBG pO2 95.6 H, VBG HCO3 20.3 L, VBG Total CO2 21.9 L, VBG O2 Saturation 95.4 H, VBG Base Excess -7.8 L 08/05/22 10:00: VBG pH 7.31, VBG pCO2 44.0, VBG pO2 29.1, VBG HCO3 21.6 L, VBG Total CO2 22.9 L, VBG O2 Saturation 47.7 L, VBG Base Excess -4.7 L 08/05/22 10:06: Sodium 137, Potassium 3.9 D, Chloride 104, Carbon Dioxide 24, Anion Gap 12.9, BUN 33 H, Creatinine 1.70 H, Estimated Creat Clear 45, Estimated GFR 30 L, Est GFR ( Amer) 36 L, Glucose 200 H D, Calcium 8.2 L 08/05/22 10:06: APTT 23.2 L 08/05/22 11:27: SARS-CoV-2 (PCR) Not detected, Influenza A Untype (PCR) Not detected, Influenza Type B (PCR) Not detected 08/05/22 13:12: Troponin I 0.11 H 08/05/22 13:12: APTT 152.3 H* 08/05/22 17:31: Troponin I 0.15 H 08/05/22 18:05: APTT > 200.0 H* 08/06/22 06:08: WBC 7.3 D, RBC 3.71 L, Hgb 11.1 L D, Hct
--- NOTE | 2022-08-06 09:05 | ECG_ITS ---
APPROVED REPORT Exam: Resting ECG HR:55 bpm ECG Measurements Heart Rate [address] 161 P 64 QRSd 104 QRS -1 QT 463 T -74 QTc [address] DEVIATION AND MODERATE T-WAVE ABNORMALITY, CONSIDER ANTEROLATERAL ISCHEMIA [-0.1+ mV T-WAVE IN V3-V6] ST DEVIATION AND MODERATE T-WAVE ABNORMALITY, CONSIDER INFERIOR ISCHEMIA [-0.1+ mV T-WAVE IN II/aVF] ABNORMAL ECG UNCONFIRMED REPORT Electronically signed by : Santiago Pollard MD 08/08/2022 09:36:29
--- NOTE | 2022-08-06 09:25 | HMH.PHAINT1 ---
Pharmacy Intervention Comments: Counseled patient and daughter on new medication Eliquis to START. Utilized teach-back to confirm that patient understood the medication's indication, dose, route, frequency, and potential side effects. Also educated patient on signs and symptoms of a stroke. Patient and daughter expressed understanding of counseling and were able to teach-back.
[2022-08-06 11:14] VITALS: BP 112/51; PULSE 63; RESP 18; TEMP 36.8; O2SAT 96
--- NOTE | 2022-08-06 11:17 | EXP.CARD.PN ---
Subjective Subjective Date: 08/06/22 Time: 09:30 Principal diagnosis: bilateral pulmonary emboli Interval history: This is a 67-year-old white female who presented to the emergency department with complaints of shortness of breath. The patient has been having worsening shortness of breath since Thursday. She states that it ultimately got severe and she was unable to do even minimal exertion without being profoundly short of breath. The patient was found to have bilateral pulmonary emboli with evidence of right heart strain. The patient was subsequently admitted to the hospital and taken to the Methodologist yesterday and underwent successful mechanical thrombectomy of the right upper and lower segments in 6 segments as well as successful mechanical thrombectomy of the left lower segment and subsegment. She is on anticoagulation with Xarelto at this time. This morning she denies any chest pain or pressure. She states that her shortness of breath has almost completely resolved. She denies any fever, chills, nausea, vomiting, diarrhea, PND or orthopnea. She denies any lower extremity edema. Exam Data for Last 24 hours Vital signs and Labs for Last 24 Hours: Temp Pulse Resp BP Pulse Ox 98.2 F 57 L 16 140/71 98 08/06/22 08:00 08/06/22 08:00 08/06/22 08:00 08/06/22 08:00 08/06/22 08:00 Laboratory Results - last 24 hr 08/05/22 10:06: APTT 23.2 L 08/05/22 11:27: SARS-CoV-2 (PCR) Not detected, Influenza A Untype (PCR) Not detected, Influenza Type B (PCR) Not detected 08/05/22 13:12: Troponin I 0.11 H 08/05/22 13:12: APTT 152.3 H* 08/05/22 17:31: Troponin I 0.15 H 08/05/22 18:05: APTT > 200.0 H* 08/06/22 06:08: WBC 7.3 D, RBC 3.71 L, Hgb 11.1 L D, Hct 34.1 L, MCV 92.1, MCH 30.1, MCHC 32.6, RDW 14.0, Plt Count 223, MPV 9.4, Neut % (Auto) 69.4, Lymph % (Auto) 22.5, [place] % (Auto) 6.7, Eos % (Auto) 1.0, Baso % (Auto) 0.3, Neut # (Auto) 5.1, Lymph # (Auto) 1.7, [place] # (Auto) 0.5, Eos # (Auto) 0.1, Baso # (Auto) 0.0 08/06/22 06:08: Sodium 140, Potassium 3.6, Chloride 108 H, Carbon Dioxide 26, Anion Gap 9.6, BUN 19 H D, Creatinine 1.00 D, Estimated Creat Clear 75, Estimated GFR 55 L, Est GFR ( Amer) 67 D, Glucose 111 H D, Calcium 7.7 L, Total Bilirubin 0.7, Direct Bilirubin 0.0, Conjugated Bilirubin 0.0, Indirect Bilirubin 0.7, Unconjugated Bilirubin 0.8, AST 30 D, ALT 46 D, Alkaline Phosphatase 77, Total Protein 5.4 L, Albumin 3.0 L D, Triglycerides 119, Cholesterol 124 L, LDL Cholesterol Direct 86.23 L, VLDL Cholesterol 24, HDL Cholesterol 21 L, Cholesterol/HDL Ratio 5.9 H I & O for Last 24 hours: Intake & Output 08/03/22 08/04/22 08/05/22 08/06/22 23:59 23:59 23:59 23:59 Intake Total 0 / 0 863 / 863 Output Total 0 / 0 0 / 0 Balance 0 / 0 863 / 863 Weight 195 lb 1 oz Radiology Reports for the Last 24 Hours: Bilateral venous Doppler shows: Positive for DVT in the left posterior tibial vein.? No evidence of DVT in the right lower extremity. Constitutional Constitutional: no acute distress and average body habitus *Routine HEENT Exam Head: Present normocephalic and atraumatic ENT: Present mucous membranes moist *Routine Neck Exam Neck: Present supple, full ROM and normal carotid upstroke; Absent JVD, carotid bruit or lymphadenopathy *Routine Respiratory Exam Respiratory: Present CTA bilaterally, normal respiratory effort, able to speak in complete sentences and symmetric chest movement *Routine Cardiovascular Exam Cardiovascular: Present RRR, Normal S1 and Normal S2; Absent murmur or gallop *Routine Abdominal Exam Abdominal: Present soft and normoactive bowel sounds; Absent tenderness, distended or organomegaly *Routine Extremities Exam Extremities: Present full ROM, pulses intact and normal capillary refill; Absent cyanosis, clubbing or edema *Routine Skin Exam Skin: Present intact and warm; Absent erythema *Routine Neurological Exam Neurological: Present alert, oriented X3 and CN II-XII intact; Absent sensory defi
[2022-08-06 12:00] VITALS: PULSE 50
--- NOTE | 2022-08-07 14:54 | CARE MANAGER ---
Attempted post-discharge phone interview. No answer.
--- NOTE | 2022-08-08 15:30 | CARE MANAGER ---
Patient returned call regarding hospital discharge. She is doing well and denies any questions or concerns. MARIA M Hercules
== END 2022-08-06 13:18 | disposition home or self-care (01) | DRG 164 ==
LOC: ER 09:47 → 2ND 12:37
PROVIDERS: Internal Medicine; Nurse Practitioner Family; Admitting Provider Internal Medicine Adolescent Medicine; Emergency Provider Emergency Medicine; PCP Internal Medicine Adolescent Medicine; Visit Provider Internal Medicine Adolescent Medicine
PROC: 02CR3ZZ Extirpation of Matter from Left Pulmonary Artery, Percutaneous Approach (ICD-10-PCS; principal; 2022-08-05 14:30)
DX: I26.09 Other pulmonary embolism with acute cor pulmonale (principal); I82.442 Acute embolism and thrombosis of left tibial vein; N17.9 Acute kidney failure, unspecified; I10 Essential (primary) hypertension; E78.5 Hyperlipidemia, unspecified
CPT/HCPCS: 36415; 37184; 37185; 71045; 71275; 80048; 80053; 80061; 80076; 82803; 83880; 84484; 85025; 85730; 93005; 93306; 93970; 99152; 99153; 99291; C1725; C1757; C1769; C9803; J1644; Q9967; U0003; U0005

== ENCOUNTER → 2022-08-15 12:39 | Outpatient (CLI) | payer BC, SELFPAY ==
--- NOTE | 2022-08-15 12:39 | US_ITS ---
FINAL REPORT TECHNIQUE: Ultrasound images of the kidneys and bladder were obtained. CLINICAL HISTORY: .pe FINDINGS: The right kidney measures 7.7 cm in length. It is normal in echogenicity. There is no hydronephrosis. The left kidney measures 9.1 cm in length. It is normal in echogenicity. There is no hydronephrosis. The spleen is unremarkable. IMPRESSION: No hydronephrosis. Reviewed, Interpreted and Dictated by Jose Zapata III, MD Transcribed by Silvia Jeffers Authenticated and [facility]
--- NOTE | 2022-08-15 12:39 | US_ITS ---
FINAL REPORT CLINICAL HISTORY: PE FINDINGS: Sonographic images of the thyroid were obtained. Multiple thyroid nodules are identified. The right lobe of the thyroid measures up to 4.3 cm. There is a nodule measuring 9 x 7 x 5 mm which is cystic, solid, and hypoechoic consistent with TI-RADS category 3. There is a 2nd nodule measuring 8 x 10 x 5 mm which is cystic, solid, and hypoechoic consistent with TI-RADS category 3. The left lobe of the thyroid measures 4.6 x 1.3 x 1.5 cm. There is an nodule measuring 8 x 3 x 5 mm which is solid and hypoechoic consistent with TI-RADS category 4. The isthmus measures 0.23 cm. IMPRESSION: Multiple small thyroid nodules. No follow-up is required. Reviewed, Interpreted and Dictated by Jose Zapata III, MD Transcribed by Silvia Jeffers Authenticated and [facility]
--- NOTE | 2022-08-15 12:39 | US_ITS ---
FINAL REPORT CLINICAL HISTORY: PE FINDINGS: Transvaginal sonographic images of the pelvis were obtained. The the uterus measures 6.2 x 2.3 x 4.9 cm. The endometrium is thickened measuring 11 mm. The right ovary is not visualized. The left ovary is normal measuring up to 1.8 cm. No free fluid is identified. IMPRESSION: Abnormal but nonspecific endometrial thickening. Reviewed, Interpreted and Dictated by Jose Zapata III, MD Transcribed by Silvia Jeffers Authenticated and [facility]
== END ==
PROVIDERS: PCP Physician Assistant; Visit Provider Physician Assistant
DX: I26.99 Other pulmonary embolism without acute cor pulmonale (principal)
CPT/HCPCS: 76536; 76770; 76830

== ENCOUNTER → 2022-08-20 06:09 | Outpatient (CLI) | payer BC, SELFPAY ==
[2022-08-20 07:24] VITALS: BMI 27.1
[2022-08-20 07:29] VITALS: BP 91/66; PULSE 68; RESP 18; TEMP 36.2; O2SAT 99
[2022-08-20 07:45] VITALS: BP 152/93; PULSE 62; RESP 18; O2SAT 99
[2022-08-20 07:55] VITALS: BP 144/77; PULSE 68; RESP 18; O2SAT 97
== END ==
PROVIDERS: PCP Physician Assistant; Visit Provider Nurse Practitioner Family
DX: R06.09 Other forms of dyspnea (principal); R94.31 Abnormal electrocardiogram [ECG] [EKG]; I82.442 Acute embolism and thrombosis of left tibial vein; I26.99 Other pulmonary embolism without acute cor pulmonale; I10 Essential (primary) hypertension; E78.2 Mixed hyperlipidemia
CPT/HCPCS: 75574; Q9967

== ENCOUNTER → 2022-08-27 09:04 | Outpatient (CLI) | payer BC, SELFPAY ==
--- NOTE | 2022-08-27 09:04 | XR_ITS ---
FINAL REPORT TECHNIQUE: Bone densitometry calculations of the lumbar spine and left hip were obtained. CLINICAL HISTORY: .POST MENOPAUSAL FINDINGS: Using L1-4, the bone mineral density of the spine is 1.254 g/cm2, corresponding to T-score of 1.9. Using the left hip, the bone mineral density of the total neck is 0.931 g/cm2, corresponding to a T-score of -0.1. Using the right hip, the bone mineral density right neck is 0.818 g/cm2, corresponding to a T-score of -0.3 NOTE: T-score: Standard deviation compared with peak bone mass of young adult mean. *Following the recommendations of the International Society of Bone densitometry, classification of hip BMD is based on the lower of two T-scores; total hip or femoral neck. IMPRESSION: Normal bone mineral density of the lumbar spine and both hips. FRAX was not reported because all scores are at or above -1.0 Reviewed, Interpreted and Dictated by Perez Powers MD Transcribed by Silvia Jeffers Authenticated and [facility]
== END ==
PROVIDERS: PCP Physician Assistant; Visit Provider Physician Assistant
DX: N95.0 Postmenopausal bleeding (principal); Z78.0 Asymptomatic menopausal state; Z13.820 Encounter for screening for osteoporosis
CPT/HCPCS: 77080